=== PATIENT | male | born 1975 | race Two or more races ===

== ENCOUNTER 2025-06-08 09:13 | Emergency (ER) | payer OTHER ==
[~2025-06-08] VITALS: Ht 162.6 cm; Wt 72.6 kg
[2025-06-08 09:26] VITALS: BP 150/70; O2SAT 98
[2025-06-08 12:19] LABS: BASO % 0.6 % (0.1-1.2); EOS # 0.10 (0.04-0.54); EOS % 1.0 % (0.7-7.0); LYMPH # 1.64 (1.18-3.74); LYMPH % 16.9 % (19.3-53.1); MEAN PLATELET VOLUME 10.20 fl (9.4-12.4); MONO # 0.85 (0.24-0.82); MONO % 8.8 % (4.7-12.5); NEUT # 6.92 (1.56-6.13); NEUT % 71.5 % (34.0-71.1); RED CELL DISTRIBUTION WIDTH 12.3 % (11.6-14.4)
[2025-06-08 12:49] LABS: ALT/SGPT 112.0 U/L (12-78); AST/SGOT 30.0 U/L (15-37); BILIRUBIN TOTAL 1.58 mg/dL (0.3-1.2); BUN CREA RATIO 20.0 (7.0-25.0); CREATININE SERUM 0.97 mg/dL (0.70-1.30); GFR 81.59; GLOBULINA 3.1 G/DL (2.4-3.5); GLUCOSE FASTING 78.0 mg/dL (65-100); OSMOLALITY SERUM 288.0 MOSM/KG (275-295)
== END 2025-06-08 15:29 | disposition home or self-care (01) ==
LOC: ER 09:13
PROVIDERS: Preventive Medicine Public Health & General Preventive Medicine
DX: R10.11 Right upper quadrant pain (principal); Z88.0 Allergy status to penicillin